=== PATIENT | female | born 1975 | race Caucasian/White ===

== ENCOUNTER 2018-07-31 07:56 | Emergency (ER) | payer OTHER ==
[~2018-07-31] VITALS: Ht 170.2 cm; Wt 76.3 kg
[2018-07-31] MEDS ORDERED: ZOLP-413 PO (08:15)
[2018-07-31] MEDS ORDERED: HYDR1TAB16 PO (08:15)
[2018-07-31] MEDS ORDERED: LEVO150T5 PO (08:15)
[2018-07-31 09:11] LABS: BASOPHILS # (AUTO) 0.08 x10^3/uL (0-0.1); BASOPHILS % (AUTO) 1 % (0-1); EOSINOPHILS # (AUTO) 0.06 x10^3/uL (0-0.4); EOSINOPHILS % (AUTO) 1 % (1-7); LYMPHOCYTES # (AUTO) 2.01 x10^3/uL (1-3.4); LYMPHOCYTES % (AUTO) 16 % (22-44); MD NO; MEAN CORPUSCULAR HEMOGLOBIN 33.8 pg (27.0-34.8); MEAN CORPUSCULAR HGB CONC 33.7 g/dL (32.4-35.8); MEAN PLATELET VOLUME 7.7 fL (7.4-10.4); MONOCYTES # (AUTO) 0.57 x10^3/uL (0.2-0.8); MONOCYTES % (AUTO) 5 % (2-9); NEUTROPHILS # (AUTO) 10.06 x10^3/uL (1.8-6.8); NEUTROPHILS % (AUTO) 79 % (42-75); PLATELET COUNT 370 x10^3/uL (130-400); RED BLOOD COUNT 4.09 x10^6/uL (3.82-5.3); RED CELL DISTRIBUTION WIDTH 14.3 % (9.6-15.2)
[2018-07-31 09:18] LABS: ALBUMIN 3.9 g/dL (3.4-5.0); ANION GAP 11 mmol/L (5-15); CALCIUM 8.1 mg/dL (8.5-10.1); CHLORIDE 106 mmol/L (98-107)
[2018-07-31 09:20] LABS: CULTURE INDICATED? NO; HCG UR SG 1.008 (1.003-1.030); MICROSCOPIC AUTO
[2018-07-31 09:24] LABS: AMPHETAMINE SCREEN, URINE Positive (Negative); BARBITURATE SCREEN, URINE Negative (Negative); BENZODIAZEPINE SCREEN, URINE Negative (Negative); CANNABINOID SCREEN, URINE Negative (Negative); COCAINE SCREEN, URINE Negative (Negative); METHADONE SCREEN, URINE Negative (Negative); OPIATE SCREEN, URINE Positive (Negative)
[2018-07-31 09:31] LABS: ALANINE AMINOTRANSFERASE 23 U/L (12-78); ALKALINE PHOSPHATASE 69 U/L (45-117); BILIRUBIN,TOTAL 0.8 mg/dL (0.2-1.0); CREATININE 1.01 mg/dL (0.55-1.02); TOTAL PROTEIN 7.2 g/dL (6.4-8.2)
[2018-07-31] MEDS ORDERED: LORazepam 1MG TABLET ONE (10:56)
[2018-07-31] MEDS ORDERED: LORazepam 1MG TABLET PO ONE (11:00)
[2018-07-31 11:34] VITALS: BP 124/91
== END 2018-07-31 12:51 | disposition home or self-care (01) ==
LOC: ED 10:25
DX: R41.82 Altered mental status, unspecified (principal); F24 Shared psychotic disorder; F15.921 Other stimulant use, unspecified with intoxication delirium; F17.200 Nicotine dependence, unspecified, uncomplicated; E03.9 Hypothyroidism, unspecified
CPT/HCPCS: 36415; 70450; 80053; 80307; 81001; 81025; 84439; 84443; 84481; 85025; 93005; 99285

== ENCOUNTER 2019-01-27 16:04 | Inpatient (IN) | payer OTHER ==
[~2019-01-27] VITALS: Ht 170.2 cm; Wt 101.6 kg
[~2019-01-27 16:04] MED LIST: HYDR1TAB16 PO; LEVO150T5 PO; ZOLP-413 PO
[2019-01-27] MEDS ORDERED: SODIUM CHLORIDE 0.9% 1,000ML IVBOLUS ONE (16:30)
[2019-01-27] MEDS ORDERED: ONDANSETRON 2MG/ML, 2ML IVPush ONE (16:30)
[2019-01-27] MEDS ORDERED: SODIUM CHLORIDE FLUSH 10ML SYR IVF ONE ×2 (16:30)
[2019-01-27] MEDS ORDERED: LIOT5TAB10 PO (16:35)
[2019-01-27] MEDS ORDERED: WELLBUTRIN PO (16:35)
--- NOTE | 2019-01-27 16:38 | NUR ---
PT TO ED FOR LEFT SIDED ABD PAIN RAD TO LEFT FLANK SINCE SUNDAY. [facility] SUNDAY. CONNECTED TO MONITORS. TACHY, ALL OTHER VSS ON RA. EDMD ASSESSMENT COMPLETE AND ORDERS RECEIVED.
[2019-01-27] MEDS ORDERED: ONDANSETRON 2MG/ML, 2ML ONE (16:50)
[2019-01-27] MEDS ORDERED: HYDROmorphone 1 MG/ML, 1ML VIAL ONE ×2 (16:51→18:17)
[2019-01-27 16:53] LABS: BASOPHILS # (AUTO) 0.05 x10^3/uL (0-0.1); BASOPHILS % (AUTO) 1 % (0-1); EOSINOPHILS # (AUTO) 0.05 x10^3/uL (0-0.4); EOSINOPHILS % (AUTO) 1 % (1-7); LYMPHOCYTES # (AUTO) 1.03 x10^3/uL (1-3.4); LYMPHOCYTES % (AUTO) 10 % (22-44); MD NO; MEAN CORPUSCULAR HEMOGLOBIN 35.4 pg (27.0-34.8); MEAN CORPUSCULAR HGB CONC 35.5 g/dL (32.4-35.8); MEAN CORPUSCULAR VOLUME 99.7 fL (80-100); MEAN PLATELET VOLUME 7.6 fL (7.4-10.4); MONOCYTES # (AUTO) 0.31 x10^3/uL (0.2-0.8); MONOCYTES % (AUTO) 3 % (2-9); NEUTROPHILS # (AUTO) 8.68 x10^3/uL (1.8-6.8); NEUTROPHILS % (AUTO) 86 % (42-75); PLATELET COUNT 260 x10^3/uL (130-400); RED BLOOD COUNT 3.57 x10^6/uL (3.82-5.3)
[2019-01-27] MEDS: HYDROmorphone 2 MG/ML, 1ML IVPush PRN ×2 (16:53→18:34)
--- NOTE | 2019-01-27 16:58 | NUR ---
IV ESTABLISHED AND LABS DRAWN AND SENT. UA COLLECTED AND SENT. PT MEDICATED PER DEC. VSS. 2LNC PLACED. NO NEEDS EXPRESSED. CALL LIGHT WITHIN REACH.
[2019-01-27 17:04] LABS: ALANINE AMINOTRANSFERASE 43 U/L (12-78); ALBUMIN 2.5 g/dL (3.4-5.0); ANION GAP 10 mmol/L (5-15); CALCIUM 6.4 mg/dL (8.5-10.1); CHLORIDE 96 mmol/L (98-107); CREATININE 1.44 mg/dL (0.55-1.02)
[2019-01-27 17:07] LABS: HCG UR SG 1.014 (1.003-1.030)
[2019-01-27 17:07] LABS: ALKALINE PHOSPHATASE 165 U/L (45-117); BILIRUBIN,TOTAL 0.6 mg/dL (0.2-1.0); TOTAL PROTEIN 7.1 g/dL (6.4-8.2)
[2019-01-27 17:11] LABS: CULTURE INDICATED? NO; MICROSCOPIC INDICATED
[2019-01-27] MEDS ORDERED: POTASSIUM CHLORIDE 20 MEQ TAB.ER.PRT PO ONE (17:30)
--- NOTE | 2019-01-27 17:37 | NUR ---
EDMD TO BEDSIDE TO UPDATE ON POC.
[2019-01-27] MEDS ORDERED: POTASSIUM CHLORIDE 20 MEQ TAB.ER.PRT ONE (17:39)
--- NOTE | 2019-01-27 17:42 | NUR ---
PT MEDICATED PER DEC. PT TO CT AT THIS TIME.
--- NOTE | 2019-01-27 17:53 | NUR ---
PT BACK FROM CT. VSS. TOLERATED WELL. AWAITING RESULTS AT THIS TIME.
[2019-01-27] MEDS ORDERED: OMNIPAQUE 350 MG/ML, 100ML BOTTLE ONE (17:55)
--- NOTE | 2019-01-27 18:15 | NUR ---
TASK RN: PT IS RESTING IN ROOM. NADN AT THIS TIME. PT REPORTS PAIN CONTROL BETTER AFTER 1MG DILUDID DOSE. PT PROVIDED WITH MOUTH SWABS TO PROVIDE COMFORT FOR ORAL MUCOSA.
[2019-01-27 18:47] LABS: FREE T4 (FREE THYROXINE) 0.62 ng/dL (0.76-1.46); THYROID STIMULATING HORMONE 27.9 mIU/L (0.358-3.740)
[2019-01-27 19:29] LABS: AMPHETAMINE SCREEN, URINE Negative (Negative); BARBITURATE SCREEN, URINE Negative (Negative); BENZODIAZEPINE SCREEN, URINE Negative (Negative); CANNABINOID SCREEN, URINE Negative (Negative); COCAINE SCREEN, URINE Negative (Negative); METHADONE SCREEN, URINE Negative (Negative); OPIATE SCREEN, URINE Positive (Negative)
[2019-01-27] MEDS ORDERED: SODIUM CHLORIDE FLUSH 10ML SYR IVF PRN (19:30)
[2019-01-27] MEDS ORDERED: CALCIUM GLUCONATE 4.6 MEQ in SODIUM CHLORIDE 0.9% 50 ML IV ONE (19:30)
--- NOTE | 2019-01-27 20:08 | NUR ---
REPORT TO LADI WEAVER. PT READY FOR TRANSPORT.
[2019-01-27 20:23] VITALS: BP 125/83
[2019-01-27] MEDS ORDERED: BISACODYL 10 MG SUPP PR PRN (20:30)
[2019-01-27] MEDS ORDERED: hydrALAzine 20 MG/ML, 1ML IVPush PRN (20:30)
[2019-01-27] MEDS: LIDODERM 5% PATCH TD PRN ×2 (21:05→23:48)
[2019-01-27] MEDS: NS + 20MEQ KCL 1,000 ML IV SCH (21:11)
[2019-01-27 21:18] LABS: HEMOGLOBIN A1C 5.9 % (4.2-6.3)
[2019-01-28 02:36] VITALS: BP 126/88
[2019-01-28] MEDS: NS + 20MEQ KCL 1,000 ML IV SCH ×3 (05:22→22:18)
[2019-01-28] MEDS: LEVOTHYROXINE 150 MCG TABLET PO SCH (05:22)
[2019-01-28 06:06] LABS: ANION GAP 7 mmol/L (5-15); CALCIUM 6.6 mg/dL (8.5-10.1); CHLORIDE 102 mmol/L (98-107)
[2019-01-28 06:12] LABS: BASOPHILS # (AUTO) 0.01 x10^3/uL (0-0.1); BASOPHILS % (AUTO) 0 % (0-1); EOSINOPHILS % (AUTO) 1 % (1-7); LYMPHOCYTES # (AUTO) 1.03 x10^3/uL (1-3.4); LYMPHOCYTES % (AUTO) 13 % (22-44); MD NO; MEAN CORPUSCULAR HEMOGLOBIN 35.6 pg (27.0-34.8); MEAN CORPUSCULAR HGB CONC 35.3 g/dL (32.4-35.8); MEAN CORPUSCULAR VOLUME 100.8 fL (80-100); MEAN PLATELET VOLUME 7.7 fL (7.4-10.4); MONOCYTES # (AUTO) 0.56 x10^3/uL (0.2-0.8); MONOCYTES % (AUTO) 7 % (2-9); NEUTROPHILS # (AUTO) 6.41 x10^3/uL (1.8-6.8); NEUTROPHILS % (AUTO) 79 % (42-75); PLATELET COUNT 225 x10^3/uL (130-400); RED BLOOD COUNT 2.95 x10^6/uL (3.82-5.3); RED CELL DISTRIBUTION WIDTH 15.9 % (9.6-15.2)
[2019-01-28 06:16] LABS: ALANINE AMINOTRANSFERASE 37 U/L (12-78); ALKALINE PHOSPHATASE 130 U/L (45-117); BILIRUBIN,TOTAL 0.5 mg/dL (0.2-1.0); CREATININE 1.09 mg/dL (0.55-1.02); TOTAL PROTEIN 5.9 g/dL (6.4-8.2); TRIGLYCERIDES 259 mg/dL (50-200)
[2019-01-28 06:58] VITALS: BP 120/82
[2019-01-28] MEDS: PANTOPRAZOLE 40 MG IV IVPush SCH (08:27)
[2019-01-28] MEDS ORDERED: WELLBUTRIN PO SCH (09:00)
[2019-01-28] MEDS ORDERED: LIOTHYRONINE 5 MCG TABLET PO SCH (09:00)
[2019-01-28] MEDS ORDERED: MORPHINE SULFATE 4 MG/ML, 1ML ONE (09:38)
[2019-01-28] MEDS ORDERED: morphine SULFATE 10 MG/ML, 1ML IVPush ONE (10:00)
[2019-01-28] MEDS: LIOTHYRONINE 5 MCG TABLET PO SCH (11:04)
[2019-01-28 13:03] VITALS: BP 143/92
[2019-01-28] MEDS: morphine SULFATE 10 MG/ML, 1ML IVPush PRN ×3 (13:08→20:09)
[2019-01-28 19:56] VITALS: BP 131/83
[2019-01-29] MEDS: morphine SULFATE 10 MG/ML, 1ML IVPush PRN ×6 (00:17→21:11)
[2019-01-29 01:05] VITALS: BP 149/97
[2019-01-29] MEDS: NS + 20MEQ KCL 1,000 ML IV SCH ×3 (04:16→20:02)
[2019-01-29] MEDS: LEVOTHYROXINE 150 MCG TABLET PO SCH (05:39)
[2019-01-29 07:16] VITALS: BP 131/89
[2019-01-29] MEDS: PANTOPRAZOLE 40 MG IV IVPush SCH (07:39)
[2019-01-29 08:17] LABS: ANION GAP 5 mmol/L (5-15); CHLORIDE 105 mmol/L (98-107)
[2019-01-29 08:19] LABS: BASOPHILS # (AUTO) 0.02 x10^3/uL (0-0.1); BASOPHILS % (AUTO) 0 % (0-1); EOSINOPHILS # (AUTO) 0.06 x10^3/uL (0-0.4); EOSINOPHILS % (AUTO) 1 % (1-7); LYMPHOCYTES # (AUTO) 1.03 x10^3/uL (1-3.4); LYMPHOCYTES % (AUTO) 16 % (22-44); MD NO; MEAN CORPUSCULAR HEMOGLOBIN 34.3 pg (27.0-34.8); MEAN CORPUSCULAR HGB CONC 33.7 g/dL (32.4-35.8); MEAN CORPUSCULAR VOLUME 101.7 fL (80-100); MEAN PLATELET VOLUME 7.6 fL (7.4-10.4); MONOCYTES # (AUTO) 0.75 x10^3/uL (0.2-0.8); MONOCYTES % (AUTO) 12 % (2-9); NEUTROPHILS # (AUTO) 4.57 x10^3/uL (1.8-6.8); NEUTROPHILS % (AUTO) 71 % (42-75); PLATELET COUNT 259 x10^3/uL (130-400); RED BLOOD COUNT 3.05 x10^6/uL (3.82-5.3); RED CELL DISTRIBUTION WIDTH 16.3 % (9.6-15.2)
[2019-01-29 08:21] LABS: ALANINE AMINOTRANSFERASE 42 U/L (12-78); ALKALINE PHOSPHATASE 122 U/L (45-117); BILIRUBIN,TOTAL 0.9 mg/dL (0.2-1.0); CREATININE 0.97 mg/dL (0.55-1.02); TOTAL PROTEIN 5.8 g/dL (6.4-8.2)
[2019-01-29] MEDS: BUPROPION SR 100 MG TABLET PO SCH (09:09)
[2019-01-29] MEDS: LIOTHYRONINE 5 MCG TABLET PO SCH (09:09)
[2019-01-29 13:10] VITALS: BP 129/89
[2019-01-29 18:59] VITALS: BP 146/96
[2019-01-30] MEDS: morphine SULFATE 10 MG/ML, 1ML IVPush PRN ×7 (00:13→23:02)
[2019-01-30] MEDS: NS + 20MEQ KCL 1,000 ML IV SCH ×5 (00:53→20:39)
[2019-01-30 00:56] VITALS: BP 122/76
[2019-01-30] MEDS: LEVOTHYROXINE 150 MCG TABLET PO SCH (05:52)
[2019-01-30 07:10] VITALS: BP 120/77
[2019-01-30] MEDS: PANTOPRAZOLE 40 MG IV IVPush SCH (08:22)
[2019-01-30] MEDS: BUPROPION SR 100 MG TABLET PO SCH (08:22)
[2019-01-30] MEDS: LIOTHYRONINE 5 MCG TABLET PO SCH (08:22)
[2019-01-30 09:50] LABS: BASOPHILS % (AUTO) 0 % (0-1); EOSINOPHILS # (AUTO) 0.08 x10^3/uL (0-0.4); EOSINOPHILS % (AUTO) 1 % (1-7); LYMPHOCYTES % (AUTO) 13 % (22-44); MD NO; MEAN CORPUSCULAR HEMOGLOBIN 35.9 pg (27.0-34.8); MEAN CORPUSCULAR HGB CONC 34.9 g/dL (32.4-35.8); MEAN CORPUSCULAR VOLUME 102.9 fL (80-100); MEAN PLATELET VOLUME 7.3 fL (7.4-10.4); MONOCYTES # (AUTO) 1.09 x10^3/uL (0.2-0.8); MONOCYTES % (AUTO) 11 % (2-9); NEUTROPHILS # (AUTO) 7.59 x10^3/uL (1.8-6.8); NEUTROPHILS % (AUTO) 75 % (42-75); PLATELET COUNT 318 x10^3/uL (130-400); RED BLOOD COUNT 2.97 x10^6/uL (3.82-5.3); RED CELL DISTRIBUTION WIDTH 15.8 % (9.6-15.2)
[2019-01-30 09:59] LABS: ALANINE AMINOTRANSFERASE 55 U/L (12-78); ALBUMIN 2.2 g/dL (3.4-5.0); ANION GAP 7 mmol/L (5-15); CALCIUM 7.7 mg/dL (8.5-10.1); CHLORIDE 102 mmol/L (98-107); CREATININE 0.97 mg/dL (0.55-1.02)
[2019-01-30 10:02] LABS: ALKALINE PHOSPHATASE 228 U/L (45-117); BILIRUBIN,TOTAL 1.1 mg/dL (0.2-1.0); TOTAL PROTEIN 6.6 g/dL (6.4-8.2)
[2019-01-30 12:23] VITALS: BP 122/76
[2019-01-30 20:00] VITALS: BP 135/90
[2019-01-31 01:13] VITALS: BP 124/84
[2019-01-31] MEDS: NS + 20MEQ KCL 1,000 ML IV SCH (02:16)
[2019-01-31] MEDS ORDERED: LORazepam 2 MG/ML, 1ML IVPush ONE (02:30)
[2019-01-31] MEDS: morphine SULFATE 10 MG/ML, 1ML IVPush PRN ×2 (02:36→07:37)
[2019-01-31 05:10] VITALS: BP 135/87
[2019-01-31] MEDS: LEVOTHYROXINE 150 MCG TABLET PO SCH (05:53)
[2019-01-31] MEDS: PANTOPRAZOLE 40 MG IV IVPush SCH (07:36)
[2019-01-31] MEDS: BUPROPION SR 100 MG TABLET PO SCH (07:37)
[2019-01-31] MEDS: LIOTHYRONINE 5 MCG TABLET PO SCH (07:37)
[2019-01-31] MEDS: LIDODERM 5% PATCH TD PRN (07:38)
[2019-01-31 07:53] VITALS: BP 129/46
[2019-01-31 08:59] LABS: MEAN CORPUSCULAR HEMOGLOBIN 34.9 pg (27.0-34.8); MEAN CORPUSCULAR HGB CONC 34.1 g/dL (32.4-35.8); MEAN CORPUSCULAR VOLUME 102.4 fL (80-100); MEAN PLATELET VOLUME 7.6 fL (7.4-10.4); PLATELET COUNT 387 x10^3/uL (130-400); RED BLOOD COUNT 2.87 x10^6/uL (3.82-5.3); RED CELL DISTRIBUTION WIDTH 16.2 % (9.6-15.2)
[2019-01-31 09:02] LABS: ALANINE AMINOTRANSFERASE 56 U/L (12-78); ALBUMIN 2.2 g/dL (3.4-5.0); ANION GAP 8 mmol/L (5-15); CALCIUM 7.6 mg/dL (8.5-10.1); CHLORIDE 105 mmol/L (98-107); CREATININE 0.86 mg/dL (0.55-1.02)
[2019-01-31 09:05] LABS: ALKALINE PHOSPHATASE 125 U/L (45-117); BILIRUBIN,TOTAL 0.9 mg/dL (0.2-1.0); TOTAL PROTEIN 6.3 g/dL (6.4-8.2)
[2019-01-31 09:36] LABS: MD YES
[2019-01-31 09:38] LABS: BAND#(MANUAL) 0.33 x10^3/uL; BANDS%(MANUAL) 3 % (0-7); EOS#(MANUAL) 0.11 x10^3/uL (0.0-0.4); EOS% (MANUAL) 1 % (1-7); LYMPH#(MANUAL) 1.44 x10^3/uL (1-3.4); LYMPHS% (MANUAL) 13 % (22-44); METAMYELOCYTES# (MANUAL) 0.33 x10^3/uL (0-0); METAMYELOCYTES% (MANUAL) 3 % (0-1); MONOS#(MANUAL) 1.22 x10^3/uL (0.3-2.7); MONOS% (MANUAL) 11 % (2-9); MYELOCYTES# (MANUAL) 0.11 x10^3/uL (0-0); MYELOCYTES% (MANUAL) 1 % (0-0); SEG#(MANUAL) 7.55 x10^3/uL (1.8-6.8); SEGS% (MANUAL) 68 % (42-75)
[2019-01-31 09:39] LABS: <PLATELET ESTIMATE> ADEQUATE; <PLT MORPHOLOGY> NORMAL PLT MORPH; ANISOCYTOSIS 1+; POLYCHROMASIA 1+
[2019-01-31] MEDS ORDERED: morphine SULFATE 10 MG/ML, 1ML IVPush PRN ×2 (11:40→11:45)
[2019-01-31 13:45] VITALS: BP 136/88
[2019-01-31] MEDS ORDERED: MORPHINE SULFATE 4 MG/ML, 1ML IVPush PRN (14:30)
[2019-01-31] MEDS: MORPHINE SULFATE 4 MG/ML, 1ML IVPush PRN ×2 (17:55→21:01)
[2019-01-31 20:19] VITALS: BP 127/73
[2019-01-31] MEDS: DIPHENHYDRAMINE 25 MG CAPSULE PO PRN (21:01)
[2019-02-01] MEDS: MORPHINE SULFATE 4 MG/ML, 1ML IVPush PRN ×7 (01:13→23:24)
[2019-02-01 01:50] VITALS: BP 127/74
[2019-02-01 05:16] LABS: CHLORIDE 108 mmol/L (98-107)
[2019-02-01 05:25] LABS: ALANINE AMINOTRANSFERASE 39 U/L (12-78); ALKALINE PHOSPHATASE 112 U/L (45-117); ANION GAP 6 mmol/L (5-15); BILIRUBIN,TOTAL 0.5 mg/dL (0.2-1.0); CALCIUM 8.2 mg/dL (8.5-10.1); TOTAL PROTEIN 5.6 g/dL (6.4-8.2)
[2019-02-01] MEDS: LEVOTHYROXINE 150 MCG TABLET PO SCH (05:47)
[2019-02-01] MEDS: PANTOPROZOLE 40MG TABLET PO SCH (05:47)
[2019-02-01 07:59] VITALS: BP 128/86
[2019-02-01 08:34] LABS: MEAN CORPUSCULAR HEMOGLOBIN 34.3 pg (27.0-34.8); MEAN CORPUSCULAR HGB CONC 33.3 g/dL (32.4-35.8); MEAN CORPUSCULAR VOLUME 102.9 fL (80-100); MEAN PLATELET VOLUME 7.6 fL (7.4-10.4); PLATELET COUNT 402 x10^3/uL (130-400); RED CELL DISTRIBUTION WIDTH 16.2 % (9.6-15.2)
[2019-02-01 08:40] LABS: ALANINE AMINOTRANSFERASE 41 U/L (12-78); ALBUMIN 1.9 g/dL (3.4-5.0); ANION GAP 6 mmol/L (5-15); CALCIUM 7.8 mg/dL (8.5-10.1); CHLORIDE 105 mmol/L (98-107); CREATININE 0.83 mg/dL (0.55-1.02)
[2019-02-01 08:43] LABS: ALKALINE PHOSPHATASE 112 U/L (45-117); BILIRUBIN,TOTAL 0.4 mg/dL (0.2-1.0); TOTAL PROTEIN 5.6 g/dL (6.4-8.2)
[2019-02-01 09:12] LABS: BASOPHILS # (AUTO) 0.02 x10^3/uL (0-0.1); BASOPHILS % (AUTO) 0 % (0-1); EOSINOPHILS # (AUTO) 0.14 x10^3/uL (0-0.4); EOSINOPHILS % (AUTO) 1 % (1-7); LYMPHOCYTES # (AUTO) 1.42 x10^3/uL (1-3.4); LYMPHOCYTES % (AUTO) 14 % (22-44); MD SCAN; MONOCYTES # (AUTO) 0.55 x10^3/uL (0.2-0.8); MONOCYTES % (AUTO) 5 % (2-9); NEUTROPHILS % (AUTO) 80 % (42-75)
[2019-02-01] MEDS: AMOXICILLIN/CLAV 875-125MG TABLET PO SCH ×2 (09:27→20:08)
[2019-02-01] MEDS: BUPROPION SR 100 MG TABLET PO SCH (09:27)
[2019-02-01] MEDS ORDERED: ALBUTEROL SULFATE 2.5 MG/3 ML ONE (09:27)
[2019-02-01] MEDS: LIOTHYRONINE 5 MCG TABLET PO SCH (09:27)
[2019-02-01] MEDS: DOXYCYCLINE 100MG TABLET PO SCH ×2 (09:27→20:09)
[2019-02-01] MEDS: FUROSEMIDE 40 MG/4 ML IV SCH ×2 (09:28→16:46)
[2019-02-01] MEDS: ALBUTEROL SULFATE 2.5 MG/3 ML NPPB PRN ×2 (09:30→17:20)
[2019-02-01] MEDS: DOCUSATE 100 MG CAPSULE PO SCH ×2 (09:50→20:08)
[2019-02-01] MEDS ORDERED: MAGNESIUM HYDROXIDE 8%, 30ML UDC ONE (12:28)
[2019-02-01] MEDS: MAGNESIUM HYDROXIDE 8%, 30ML UDC PO SCH (12:31)
[2019-02-01 12:47] VITALS: BP 124/83
[2019-02-01 19:47] VITALS: BP 115/80
[2019-02-01] MEDS: DIPHENHYDRAMINE 25 MG CAPSULE PO PRN (22:30)
[2019-02-02 00:48] VITALS: BP 113/75
[2019-02-02] MEDS: MORPHINE SULFATE 4 MG/ML, 1ML IVPush PRN ×7 (02:33→23:41)
[2019-02-02 05:58] LABS: BASOPHILS # (AUTO) 0.01 x10^3/uL (0-0.1); BASOPHILS % (AUTO) 0 % (0-1); EOSINOPHILS # (AUTO) 0.14 x10^3/uL (0-0.4); EOSINOPHILS % (AUTO) 1 % (1-7); LYMPHOCYTES # (AUTO) 1.62 x10^3/uL (1-3.4); LYMPHOCYTES % (AUTO) 14 % (22-44); MD NO; MEAN CORPUSCULAR HEMOGLOBIN 34.8 pg (27.0-34.8); MEAN CORPUSCULAR VOLUME 102.5 fL (80-100); MEAN PLATELET VOLUME 7.5 fL (7.4-10.4); MONOCYTES # (AUTO) 0.64 x10^3/uL (0.2-0.8); MONOCYTES % (AUTO) 6 % (2-9); NEUTROPHILS # (AUTO) 9.19 x10^3/uL (1.8-6.8); NEUTROPHILS % (AUTO) 79 % (42-75); PLATELET COUNT 435 x10^3/uL (130-400); RED BLOOD COUNT 2.91 x10^6/uL (3.82-5.3); RED CELL DISTRIBUTION WIDTH 16.1 % (9.6-15.2)
[2019-02-02 05:59] LABS: ALBUMIN 2.2 g/dL (3.4-5.0); ANION GAP 10 mmol/L (5-15); CALCIUM 8.3 mg/dL (8.5-10.1); CHLORIDE 100 mmol/L (98-107)
[2019-02-02 06:03] LABS: ALANINE AMINOTRANSFERASE 46 U/L (12-78); ALKALINE PHOSPHATASE 114 U/L (45-117); BILIRUBIN,TOTAL 0.6 mg/dL (0.2-1.0); TOTAL PROTEIN 6.3 g/dL (6.4-8.2)
[2019-02-02] MEDS: LEVOTHYROXINE 150 MCG TABLET PO SCH (06:09)
[2019-02-02] MEDS: PANTOPROZOLE 40MG TABLET PO SCH (06:09)
[2019-02-02] MEDS: LIOTHYRONINE 5 MCG TABLET PO SCH (07:49)
[2019-02-02] MEDS: FUROSEMIDE 40 MG/4 ML IV SCH ×2 (07:49→17:55)
[2019-02-02] MEDS: DOCUSATE 100 MG CAPSULE PO SCH ×2 (07:49→21:04)
[2019-02-02] MEDS: AMOXICILLIN/CLAV 875-125MG TABLET PO SCH ×2 (07:50→21:04)
[2019-02-02] MEDS: DOXYCYCLINE 100MG TABLET PO SCH ×2 (07:50→21:04)
[2019-02-02] MEDS: BUPROPION SR 100 MG TABLET PO SCH (07:50)
[2019-02-02] MEDS: POTASSIUM CHLORIDE 20 MEQ TAB.ER.PRT PO SCH ×2 (07:50→17:55)
[2019-02-02] MEDS: GUAIFENESIN 200 MG TABLET PO SCH ×4 (07:51→21:04)
[2019-02-02] MEDS: HEPARIN 5,000 UNITS/ML, 1ML SQ SCH ×3 (07:52→23:41)
[2019-02-02 08:01] VITALS: BP 118/86
[2019-02-02] MEDS ORDERED: MAGNESIUM CITRATE 300ML ORAL SOL PO ONE ×2 (09:00→18:00)
[2019-02-02] MEDS: ONDANSETRON 2MG/ML, 2ML IVPush PRN (09:16)
[2019-02-02 13:42] VITALS: BP 107/71
[2019-02-02 18:49] VITALS: BP 124/87
[2019-02-02] MEDS: DIPHENHYDRAMINE 25 MG CAPSULE PO PRN (21:04)
[2019-02-03 02:05] VITALS: BP 116/79
[2019-02-03] MEDS: MORPHINE SULFATE 4 MG/ML, 1ML IVPush PRN ×4 (02:53→13:45)
[2019-02-03 05:14] LABS: BASOPHILS # (AUTO) 0.02 x10^3/uL (0-0.1); BASOPHILS % (AUTO) 0 % (0-1); EOSINOPHILS # (AUTO) 0.12 x10^3/uL (0-0.4); EOSINOPHILS % (AUTO) 1 % (1-7); LYMPHOCYTES % (AUTO) 13 % (22-44); MD NO; MEAN CORPUSCULAR HEMOGLOBIN 34.4 pg (27.0-34.8); MEAN CORPUSCULAR HGB CONC 33.3 g/dL (32.4-35.8); MEAN CORPUSCULAR VOLUME 103.3 fL (80-100); MEAN PLATELET VOLUME 7.5 fL (7.4-10.4); MONOCYTES # (AUTO) 0.53 x10^3/uL (0.2-0.8); MONOCYTES % (AUTO) 4 % (2-9); NEUTROPHILS # (AUTO) 9.84 x10^3/uL (1.8-6.8); NEUTROPHILS % (AUTO) 82 % (42-75); PLATELET COUNT 527 x10^3/uL (130-400); RED BLOOD COUNT 3.14 x10^6/uL (3.82-5.3); RED CELL DISTRIBUTION WIDTH 16.2 % (9.6-15.2)
[2019-02-03 05:23] LABS: CHLORIDE 99 mmol/L (98-107)
[2019-02-03 05:30] LABS: ALANINE AMINOTRANSFERASE 43 U/L (12-78); ALBUMIN 2.5 g/dL (3.4-5.0); ALKALINE PHOSPHATASE 119 U/L (45-117); ANION GAP 5 mmol/L (5-15); BILIRUBIN,TOTAL 0.3 mg/dL (0.2-1.0); CALCIUM 8.8 mg/dL (8.5-10.1); CREATININE 1.13 mg/dL (0.55-1.02)
[2019-02-03] MEDS: LEVOTHYROXINE 150 MCG TABLET PO SCH (06:15)
[2019-02-03] MEDS: GUAIFENESIN 200 MG TABLET PO SCH ×4 (06:15→21:23)
[2019-02-03] MEDS: PANTOPROZOLE 40MG TABLET PO SCH (06:15)
[2019-02-03 07:06] VITALS: BP 114/75
[2019-02-03 10:33] VITALS: BP 126/83
[2019-02-03] MEDS: MAGNESIUM HYDROXIDE 8%, 30ML UDC PO SCH (10:41)
[2019-02-03] MEDS: AMOXICILLIN/CLAV 875-125MG TABLET PO SCH ×2 (10:41→21:21)
[2019-02-03] MEDS: POTASSIUM CHLORIDE 20 MEQ TAB.ER.PRT PO SCH (10:41)
[2019-02-03] MEDS: DOXYCYCLINE 100MG TABLET PO SCH ×2 (10:41→21:22)
[2019-02-03] MEDS: BUPROPION SR 100 MG TABLET PO SCH (10:41)
[2019-02-03] MEDS: DOCUSATE 100 MG CAPSULE PO SCH ×2 (10:41→21:22)
[2019-02-03] MEDS: LIOTHYRONINE 5 MCG TABLET PO SCH (10:41)
[2019-02-03] MEDS: FUROSEMIDE 40 MG/4 ML IV SCH (10:42)
[2019-02-03] MEDS: HEPARIN 5,000 UNITS/ML, 1ML SQ SCH ×2 (10:52→21:21)
[2019-02-03 13:11] VITALS: BP 117/76
[2019-02-03] MEDS: OXYcodone IR 5MG TABLET PO PRN (17:09)
[2019-02-03 21:04] VITALS: BP 122/81
[2019-02-03] MEDS: DIPHENHYDRAMINE 25 MG CAPSULE PO PRN (21:25)
[2019-02-03] MEDS: ONDANSETRON 2MG/ML, 2ML IVPush PRN (23:48)
[2019-02-04 00:54] VITALS: BP 107/70
[2019-02-04] MEDS: OXYcodone IR 5MG TABLET PO PRN ×3 (01:00→13:29)
[2019-02-04 05:19] LABS: BASOPHILS # (AUTO) 0.03 x10^3/uL (0-0.1); BASOPHILS % (AUTO) 0 % (0-1); EOSINOPHILS # (AUTO) 0.09 x10^3/uL (0-0.4); EOSINOPHILS % (AUTO) 1 % (1-7); LYMPHOCYTES # (AUTO) 1.53 x10^3/uL (1-3.4); LYMPHOCYTES % (AUTO) 12 % (22-44); MD NO; MEAN CORPUSCULAR HEMOGLOBIN 35.2 pg (27.0-34.8); MEAN CORPUSCULAR HGB CONC 34.3 g/dL (32.4-35.8); MEAN CORPUSCULAR VOLUME 102.6 fL (80-100); MEAN PLATELET VOLUME 7.2 fL (7.4-10.4); MONOCYTES # (AUTO) 0.53 x10^3/uL (0.2-0.8); MONOCYTES % (AUTO) 4 % (2-9); NEUTROPHILS # (AUTO) 10.91 x10^3/uL (1.8-6.8); NEUTROPHILS % (AUTO) 83 % (42-75); PLATELET COUNT 575 x10^3/uL (130-400); RED BLOOD COUNT 3.23 x10^6/uL (3.82-5.3); RED CELL DISTRIBUTION WIDTH 15.7 % (9.6-15.2)
[2019-02-04 05:31] LABS: CALCIUM 9.1 mg/dL (8.5-10.1); CHLORIDE 98 mmol/L (98-107)
[2019-02-04 05:38] LABS: ALANINE AMINOTRANSFERASE 37 U/L (12-78); ALBUMIN 2.7 g/dL (3.4-5.0); ALKALINE PHOSPHATASE 118 U/L (45-117); ANION GAP 7 mmol/L (5-15); BILIRUBIN,TOTAL 0.3 mg/dL (0.2-1.0); CREATININE 1.12 mg/dL (0.55-1.02); TOTAL PROTEIN 7.6 g/dL (6.4-8.2)
[2019-02-04] MEDS: LEVOTHYROXINE 150 MCG TABLET PO SCH (05:47)
[2019-02-04] MEDS: HEPARIN 5,000 UNITS/ML, 1ML SQ SCH ×2 (05:47→12:46)
[2019-02-04] MEDS: GUAIFENESIN 200 MG TABLET PO SCH ×2 (05:47→10:12)
[2019-02-04] MEDS: PANTOPROZOLE 40MG TABLET PO SCH (05:47)
[2019-02-04 08:40] VITALS: BP 124/84
[2019-02-04] MEDS: AMOXICILLIN/CLAV 875-125MG TABLET PO SCH (08:49)
[2019-02-04] MEDS: LIOTHYRONINE 5 MCG TABLET PO SCH (08:49)
[2019-02-04] MEDS: FUROSEMIDE 40 MG/4 ML IV SCH (08:50)
[2019-02-04] MEDS: BUPROPION SR 100 MG TABLET PO SCH (08:50)
[2019-02-04] MEDS: DOXYCYCLINE 100MG TABLET PO SCH (08:50)
[2019-02-04] MEDS: DOCUSATE 100 MG CAPSULE PO SCH (08:50)
[2019-02-04] MEDS: MAGNESIUM HYDROXIDE 8%, 30ML UDC PO SCH (08:51)
[2019-02-04] MEDS ORDERED: POTASSIUM CHLORIDE 20 MEQ TAB.ER.PRT PO SCH (09:00)
[2019-02-04 12:30] VITALS: BP 143/91
[2019-02-04] MEDS ORDERED: PANT40TA5 PO (13:27)
[2019-02-04] MEDS ORDERED: DOXY100T PO (13:27)
[2019-02-04] MEDS ORDERED: AMOX1TAB12 PO (13:27)
== END 2019-02-04 15:32 | disposition home or self-care (01) | DRG 438 ==
LOC: ED 17:04 → EDIP 19:14 → 4EST 20:20 → DCLOUNGE 02-04 15:24
PROVIDERS: ADMIT Internal Medicine; ATTEND Internal Medicine
DX: K85.00 Idiopathic acute pancreatitis without necrosis or infection (principal); J96.01 Acute respiratory failure with hypoxia; N17.0 Acute kidney failure with tubular necrosis; J18.9 Pneumonia, unspecified organism; E87.1 Hypo-osmolality and hyponatremia; K86.3 Pseudocyst of pancreas; E66.01 Morbid (severe) obesity due to excess calories; E83.51 Hypocalcemia; E87.6 Hypokalemia; E87.70 Fluid overload, unspecified; L65.9 Nonscarring hair loss, unspecified; F32.9 Major depressive disorder, single episode, unspecified; E89.0 Postprocedural hypothyroidism; G62.9 Polyneuropathy, unspecified; J20.9 Acute bronchitis, unspecified; R32 Unspecified urinary incontinence; Z82.49 Family history of ischemic heart disease and other diseases of the circulatory system; Z85.850 Personal history of malignant neoplasm of thyroid; Z86.73 Personal history of transient ischemic attack (TIA), and cerebral infarction without residual deficits; Z87.891 Personal history of nicotine dependence; Z68.35 Body mass index [BMI] 35.0-35.9, adult
CPT/HCPCS: 36415; 99285; J7613; 71045; 74177; 74181; 76700; 80053; 80307; 81001; 81025; 82330; 83036; 83690; 83735; 83880; 84439; 84443; 84478; 84703; 85025; 93005; 93306; 94640; 96374; 96375; 96376; G0378; J0610; J1170; J1644; J1940; J2405; J3480; Q9967; C9113; J2060; J2270; J7030; Q0163

== ENCOUNTER 2019-03-18 06:36 | Day surgery (SDC) | payer OTHER ==
[~2019-03-18] VITALS: Ht 170.2 cm; Wt 93.1 kg
[~2019-03-18 06:36] MED LIST changes: +AMOX1TAB12 PO; +DOXY100T PO; +LIOT5TAB10 PO; +PANT40TA5 PO; +WELLBUTRIN PO
[2019-03-18] MEDS ORDERED: LACTATED RINGERS 1,000 ML IV SCH (07:07)
[2019-03-18] MEDS ORDERED: PROG100C16 PO (07:42)
[2019-03-18] MEDS ORDERED: ONDA4TAB13 SL (07:42)
[2019-03-18] MEDS ORDERED: BUPR100T8 PO (07:42)
[2019-03-18] MEDS ORDERED: HYDR-3245 PO (07:42)
[2019-03-18] MEDS ORDERED: PANT40TA5 PO (07:42)
[2019-03-18] MEDS ORDERED: ESCI10TA10 PO (07:42)
[2019-03-18 07:43] VITALS: BP 127/79
[2019-03-18] MEDS ORDERED: PROPOFOL 10 MG/ML, 20ML ONE ×4 (08:47→09:17)
[2019-03-18] MEDS ORDERED: CEFAZOLIN 1,000 MG ONE ×2 (08:57)
[2019-03-18] MEDS ORDERED: SODIUM CHLORIDE 0.9% PF 10ML ONE (08:57)
[2019-03-18] MEDS ORDERED: ONDANSETRON 2MG/ML, 2ML ONE (09:54)
[2019-03-18] MEDS ORDERED: ONDANSETRON 2MG/ML, 2ML IVPush ONE (10:00)
== END 2019-03-18 11:15 | disposition home or self-care (01) ==
LOC: OUT 06:36
PROVIDERS: ATTEND Internal Medicine
DX: K21.0 Gastro-esophageal reflux disease with esophagitis (principal); K29.70 Gastritis, unspecified, without bleeding; K29.80 Duodenitis without bleeding; K86.2 Cyst of pancreas; E89.0 Postprocedural hypothyroidism; F32.9 Major depressive disorder, single episode, unspecified; F17.210 Nicotine dependence, cigarettes, uncomplicated; Z72.89 Other problems related to lifestyle; Z79.890 Hormone replacement therapy; Z79.899 Other long term (current) drug therapy; Z85.850 Personal history of malignant neoplasm of thyroid; Z86.73 Personal history of transient ischemic attack (TIA), and cerebral infarction without residual deficits; Z98.890 Other specified postprocedural states; Z80.0 Family history of malignant neoplasm of digestive organs
CPT/HCPCS: 43259; J0690; J2405; J2704; J7120